=== PATIENT | female | born 2000 | race Caucasian/White ===

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

== ENCOUNTER 2019-04-03 23:49 | Outpatient (CLI) | payer OTHER ==
[2019-04-04 00:26] LABS: Amorphous Sediment,Urine Rare /hpf; Appearance,Urine Cloudy (Clear); Bilirubin,Urine Negative (Negative); Blood,Urine Negative (Negative); Calcium Oxalate Crystals,Urine Rare /hpf; Color,Urine Yellow; Glucose,Urine (UA) Negative (Negative); Ketones,Urine Negative (Negative); Leukocyte Esterase,Urine Trace (Negative); Mucus,Urine Rare /hpf; Nitrite,Urine Negative (Negative); Protein,Urine Trace (Negative); RBC,Urine 1 /hpf (0-5); Specific Gravity,Urine 1.015 (1.001-1.035); Squamous Epithelial Cell,Urine 8 /hpf (0-4); Urobilinogen,Urine <2.0 mg/dL (<2.0); WBC,Urine 7 /hpf (0-5)
[2019-04-04 01:07] VITALS: BP 112/67; PULSE 61; RESP 16; TEMP 97.4
--- NOTE | 2019-04-12 09:20 | P.MSEPDOC ---
Presenting Problems - Arrival Data Date of Arrival on Unit: 04/03/19 Time of Arrival on Unit: 23:49 Mode of Transport: Ambulatory - Complaint OB-Reason for Admission/Chief Complaint: Other Comment: Patient had lower back pain the day before adn brown mucousy discharge this afternoon after using the bathroom Medical History - Information : 2 Para: 0 Term: 0 : 0 Abortions: Spontaneous or Elective: 1 Number of Living Children: 0 - Gestational Age Gestational Age by DENNY (wks/days): 32 Weeks and 5 Days Review of Systems - Review of Systems Constitutional: No problems Breast: No problems ENT: No problems Cardiovascular: No problems Respiratory: No problems Gastrointestinal: No problems Genitourinary: No problems Musculoskeletal: No problems Neurological: No problems Skin: No problems Vital Signs - Temperature Temperature: 97.4 F Temperature Source: Temporal Artery Scan - Pulse Right Brachial Pulse Rate: 61 Pulse Assessment Method: Automatic Cuff - Respirations Respiratory Rate: 16 Oxygen Delivery Method: Room Air - Blood Pressure Right Arm Blood Pressure: 112/67 Blood Pressure Mean: 82 Blood Pressure Source: Automatic Cuff Medical Screen Scoring (Pre) - Cervical Exam Dilation: 1-3 cm = 1 Membranes: Intact - Uterine Contractions Frequency: N/A Duration: N/A Intensity: N/A - Maternal Vital Signs Maternal Temperature: N/A Maternal Blood Pressure: N/A Signs of Preeclampsia: N/A Maternal Respirations: N/A - Maternal Trauma Maternal Trauma: N/A - Assessment - Baby A Baseline FHR: 125 Heart Rate - NICHD Category: Category I (Normal) = 0 NST: Reactive Position: N/A Station: N/A - Total Score - Baby A Total Score - Baby A: 1 - Total Score - Baby B Total Score - Baby B: 1 - Total Score - Baby C Total Score - Baby C: 1 - Level of Risk - Baby A Level of Risk - Baby A: Low (0-5) - Level of Risk - Baby B Level of Risk - Baby B: Low (0-5) - Level of Risk - Baby C Level of Risk - Baby C: Low (0-5) Physician Notification (Pre) - Physician Notified Physician Notified Date: 04/04/19 Physician Notified Time: 00:40 Physician/Practitioner Notifed:: Dr. Viveros Spoke With: Dr. Viveros New Order Received: Yes (Dr. Viveros would like cervical exam performed.) - Notification Comment Comment: Cervical exam completed. Patient dilated to a 1/50/high. Dr. Viveros states patient can be discharged and is to follow up with Dr. Hurst on 04/06/19 Disposition - Disposition OB Disposition: Discharge to home Discharge Date: 04/04/19 Discharge Time: 01:00 I agree with the RN Medical Screening Exam: Yes Risk & Benefit of care provided described in d/c instruction: Yes Diagnosis: FALSE LABOR BEFORE 37 COMPLETED WEEKS OF GEST, THIRD TRI
== END 2019-04-04 01:08 | disposition home or self-care (01) ==
LOC: FBPOP 23:49
PROVIDERS: ATTEND Obstetrics & Gynecology Obstetrics
DX: O47.03 False labor before 37 completed weeks of gestation, third trimester (principal); Z3A.32 32 weeks gestation of pregnancy
CPT/HCPCS: 59025; 81001; G0463; 99213

== ENCOUNTER 2019-04-06 16:50 | Emergency (ER) | payer OTHER ==
[2019-04-06 17:23] VITALS: BP 107/68; PULSE 74; RESP 18; TEMP 98.5
[2019-04-06] MEDS ORDERED: ACETAMINOPHEN TAB 325 MG TAB PO STA (17:49)
--- NOTE | 2019-04-06 18:14 | XR ---
EXAMINATION TYPE: XR elbow complete RT DATE OF EXAM: 04/06/2019 COMPARISON: NONE HISTORY: Fall. Pain. TECHNIQUE: 3 views FINDINGS: I see no fracture nor dislocation. Elbow joint spaces are fairly normal. There is no sign o f joint effusion. IMPRESSION: Negative right elbow exam.
--- NOTE | 2019-04-06 18:34 | ED ---
Fall HPI - General Chief Complaint: Fall Stated Complaint: Fall, elbow pain Time Seen by Provider: 04/06/19 17:30 Source: patient Mode of arrival: ambulatory - History of Present Illness Initial Comments: Patient is a 18-year-old female presents emergency Department with right elbow pain. Patient reports walking on wet concrete when she slipped and injured her right elbow earlier today. Patient denies any head trauma. Patient denies loss of consciousness time incident. Patient reports pain with extension and is alleviated with rest. Patient reports the pain is a 7 and throbbing. Patient denies any numbness or tingling. Patient reports a mild abrasion on the posterior aspect of her right elbow. Patient denies taking medication to alleviate the pain. - Related Data Home Medications Medication Instructions Recorded Confirmed Vit,Calc78/Iron/Folic 1 tab PO DAILY 04/04/19 04/04/19 [Pretab 29 mg-1 mg Tablet] Allergies Allergy/AdvReac Type Severity Reaction Status Date / Time Penicillins Allergy Unknown Rash/Hives Verified 04/06/19 17:23 Review of Systems ROS Statement: Those systems with pertinent positive or pertinent negative responses have been documented in the HPI. ROS Other: All systems not noted in ROS Statement are negative. Past Medical History Past Medical History: No Reported History Additional Past Medical History / Comment(s): osteopenia. 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 Past Psychological History: No Psychological Hx Reported Smoking Status: Never smoker General Exam - General Exam Comments Initial Comments: General: Well-developed well-nourished distress HEENT: Normocephalic/atraumatic, PERLL, pharynx erythema, swallowing well, EAC no erythema, no exudates, TM clear, no cervical lymph nodes Neck: Supple, nontender, trachea midline Chest/Lungs: Normal respirations, no signs of respiratory distress clear to auscultation bilaterally no wheezes, rales, rhonchi Cardiac: Regular rate and rhythm, normal S1-S2, no murmurs rubs or gallops Abdomen/GI: Soft nontender, bowel sounds equal or quadrant x4, no guarding, no rebound no CVA tenderness Musculoskeletal: 1 cm x 1 cm abrasion on the posterior aspect of the right elbow, tenderness with palpation on the right elbow, pain with extension , full range of motion, no edema, strength equal bilaterally, +2 ulnar and radial pulses, bilaterally. Skin: Warmth, no rashes or lesions, no cyanosis or diaphoresis Neurologic: AAO x 3, CN 2-12 intact, Psychiatric: Mood and affect normal, judgment normal Limitations: no limitations Course Vital Signs 04/06/19 17:20 Temperature 98.5 F Pulse Rate 74 Respiratory 18 Rate Blood Pressure 107/68 O2 Sat by Pulse 97 Oximetry Medical Decision Making - Medical Decision Making Patient is a 89-year-old female presenting to emergency department with right elbow pain. X-ray of the right elbow is negative for acute fracture or dislocations. Based on history and physical examination I suspect the patient to have suffered a contusion to the right elbow. Dawit wrap was applied. Patient was placed in a sling. There is no signs of infection. Patient advised to keep compress and area of tenderness to minimize swelling. Patient advised to follow-up with orthopedics if symptoms do not resolve. Patient advised to return to emergency department if symptoms worsen. Case discussed with physician. Disposition Clinical Impression: Contusion of elbow, right Disposition: HOME SELF-CARE Condition: Stable Instructions (If sedation given, give patient instructions): Fall Prevention for Older Adults (ED) Additional Instructions: please follow-up withorthopedics. Apply cold compress to minimize swelling. Please return to emergency department if symptoms worsen. Is patient prescribed a controlled substance at d/c from ED?: No Referrals: None,Stated [Primary Care Provider] - 1-2 days Jacob Ny MD [STAFF PHYSICIAN] - 1-2 days Time of Disposition: 18:49
== END 2019-04-06 19:10 | disposition home or self-care (01) ==
LOC: EC 16:50
DX: O9A.213 Injury, poisoning and certain other consequences of external causes complicating pregnancy, third trimester (principal); S50.01XA Contusion of right elbow, initial encounter; Z88.0 Allergy status to penicillin; Z87.39 Personal history of other diseases of the musculoskeletal system and connective tissue; Z3A.33 33 weeks gestation of pregnancy; W01.0XXA Fall on same level from slipping, tripping and stumbling without subsequent striking against object, initial encounter; Y93.01 Activity, walking, marching and hiking; Y92.89 Other specified places as the place of occurrence of the external cause
CPT/HCPCS: 99283

== ENCOUNTER 2019-04-18 22:20 | Outpatient (CLI) | payer OTHER ==
[2019-04-18 23:42] LABS: Appearance,Urine Clear (Clear); Bilirubin,Urine Negative (Negative); Blood,Urine Negative (Negative); Color,Urine Light Yellow; Glucose,Urine (UA) Negative (Negative); Ketones,Urine Negative (Negative); Leukocyte Esterase,Urine Negative (Negative); Nitrite,Urine Negative (Negative); PH, Urine 6.5 (5.0-8.0); Protein,Urine Negative (Negative); Specific Gravity,Urine 1.007 (1.001-1.035); Urobilinogen,Urine <2.0 mg/dL (<2.0)
== END 2019-04-18 23:50 | disposition home or self-care (01) ==
LOC: FBPOP 22:20
PROVIDERS: ATTEND Obstetrics & Gynecology Obstetrics
DX: O26.893 Other specified pregnancy related conditions, third trimester (principal); R10.31 Right lower quadrant pain; Z87.442 Personal history of urinary calculi; Z3A.34 34 weeks gestation of pregnancy
CPT/HCPCS: 59025; 81003; G0463; 99213

== ENCOUNTER 2019-05-01 21:40 | Outpatient (CLI) | payer OTHER ==
[2019-05-01 22:20] VITALS: BP 119/73; PULSE 76; RESP 15; TEMP 97.6
--- NOTE | 2019-05-22 12:41 | P.MSEPDOC ---
Presenting Problems - Arrival Data Date of Arrival on Unit: 05/01/19 Time of Arrival on Unit: 21:40 Mode of Transport: Ambulatory - Complaint OB-Reason for Admission/Chief Complaint: Rule Out SROM Comment: No fluid noted at time of exam Medical History - Information : 1 Para: 0 Term: 0 : 0 Abortions: Spontaneous or Elective: 0 Number of Living Children: 0 - Gestational Age Gestational Age by DENNY (wks/days): 36 Weeks and 4 Days Review of Systems - Review of Systems Constitutional: No problems Breast: No problems ENT: No problems Cardiovascular: No problems Respiratory: No problems Gastrointestinal: No problems Genitourinary: No problems Musculoskeletal: No problems Neurological: No problems Skin: No problems Vital Signs - Temperature Temperature: 97.6 F Temperature Source: Temporal Artery Scan - Pulse Pulse Oximetery Pulse Rate: 76 Pulse Assessment Method: Pulse Oximetry - Respirations Respiratory Rate: 15 Oxygen Delivery Method: Room Air O2 Sat by Pulse Oximetry: 100 - Blood Pressure Right Arm Blood Pressure: 119/73 Blood Pressure Mean: 88 Blood Pressure Source: Automatic Cuff Medical Screen Scoring (Pre) - Cervical Exam Dilation: 1-3 cm = 1 Effacement: More than 50% = 2 Membranes: Intact - Uterine Contractions Frequency: N/A Duration: N/A Intensity: N/A - Maternal Vital Signs Maternal Temperature: N/A Maternal Blood Pressure: N/A Signs of Preeclampsia: N/A Maternal Respirations: N/A - Maternal Trauma Maternal Trauma: N/A - Assessment - Baby A Baseline FHR: 120 Heart Rate - NICHD Category: Category I (Normal) = 0 NST: Reactive Position: N/A Station: N/A - Total Score - Baby A Total Score - Baby A: 3 - Total Score - Baby B Total Score - Baby B: 3 - Total Score - Baby C Total Score - Baby C: 3 - Level of Risk - Baby A Level of Risk - Baby A: Low (0-5) - Level of Risk - Baby B Level of Risk - Baby B: Low (0-5) - Level of Risk - Baby C Level of Risk - Baby C: Low (0-5) Physician Notification (Pre) - Physician Notified Physician Notified Date: 05/01/19 Physician Notified Time: 22:07 Physician/Practitioner Notifed:: Dr. Mcqueen Spoke With: Dr. Mcqueen New Order Received: Yes (discharge) - Notification Comment Comment: Report given on maternal condition, negative amnisure, no contractions, reactive NST. Orders to discharge pt home Disposition - Disposition OB Disposition: Discharge to home Discharge Date: 05/01/19 Discharge Time: 22:10 I agree with the RN Medical Screening Exam: Yes Risk & Benefit of care provided described in d/c instruction: Yes Diagnosis: RELATED CONDITIONS, UNSPECIFIED, THIRD TRIMESTER
== END 2019-05-01 22:10 | disposition home or self-care (01) ==
LOC: FBPOP 21:40
PROVIDERS: ATTEND Obstetrics & Gynecology
DX: O26.93 Pregnancy related conditions, unspecified, third trimester (principal); Z3A.26 26 weeks gestation of pregnancy
CPT/HCPCS: 59025; G0463; 99213

== ENCOUNTER 2019-05-05 00:15 | Outpatient (CLI) | payer OTHER ==
[2019-05-05 01:34] VITALS: BP 118/67; PULSE 76; RESP 16; TEMP 98.7
--- NOTE | 2019-05-05 05:00 | P.MSEPDOC ---
Presenting Problems - Arrival Data Date of Arrival on Unit: 05/05/19 Time of Arrival on Unit: 00:15 Mode of Transport: Ambulatory - Complaint OB-Reason for Admission/Chief Complaint: Rule Out SROM Comment: Possible ROM around 2345 Medical History - Information : 1 Para: 0 Term: 0 : 0 Abortions: Spontaneous or Elective: 0 Number of Living Children: 0 - Gestational Age Gestational Age by DENNY (wks/days): 37 Weeks and 1 Days Review of Systems - Review of Systems Constitutional: No problems Breast: No problems ENT: No problems Cardiovascular: No problems Respiratory: No problems Gastrointestinal: No problems Genitourinary: No problems Musculoskeletal: No problems Neurological: No problems Skin: No problems Vital Signs - Temperature Temperature: 98.7 F Temperature Source: Oral - Pulse Pulse Oximetery Pulse Rate: 76 Pulse Assessment Method: Pulse Oximetry - Respirations Respiratory Rate: 16 Oxygen Delivery Method: Room Air O2 Sat by Pulse Oximetry: 99 - Blood Pressure Right Arm Blood Pressure: 118/67 Blood Pressure Mean: 84 Blood Pressure Source: Automatic Cuff Medical Screen Scoring (Pre) - Cervical Exam Dilation: 1-3 cm = 1 Effacement: More than 50% = 2 Membranes: Intact - Uterine Contractions Frequency: > or = 36 weeks =2 Duration: > 40 seconds = 2 Intensity: N/A - Maternal Vital Signs Maternal Temperature: N/A Maternal Blood Pressure: N/A Signs of Preeclampsia: N/A Maternal Respirations: N/A - Maternal Trauma Maternal Trauma: N/A - Assessment - Baby A Baseline FHR: 125 Heart Rate - NICHD Category: Category I (Normal) = 0 NST: Reactive Position: N/A Station: N/A - Total Score - Baby A Total Score - Baby A: 7 - Total Score - Baby B Total Score - Baby B: 7 - Total Score - Baby C Total Score - Baby C: 7 - Level of Risk - Baby A Level of Risk - Baby A: Medium (6-9) - Level of Risk - Baby B Level of Risk - Baby B: Medium (6-9) - Level of Risk - Baby C Level of Risk - Baby C: Medium (6-9) Physician Notification (Pre) - Physician Notified Physician Notified Date: 05/05/19 Physician Notified Time: 00:43 Physician/Practitioner Notifed:: Dr. Viveros Spoke With: Dr. Viveros New Order Received: Yes (discharge home and keep appointment tomorrow) - Notification Comment Comment: Dr. Viveros notified of maternal/ condition, negative amnisure, contractions 3-5 minutes apart but not painful, NST reactive. Orders to discharge home and keep schedule appointment for tomorrow Disposition - Disposition OB Disposition: Physician follow up in office, Discharge to home Discharge Date: 05/05/19 Discharge Time: 00:50 I agree with the RN Medical Screening Exam: Yes Risk & Benefit of care provided described in d/c instruction: Yes Diagnosis: FALSE LABOR AT OR AFTER 37 COMPLETED WEEKS OF GESTATION
== END 2019-05-05 00:50 | disposition home or self-care (01) ==
LOC: FBPOP 00:15
PROVIDERS: ATTEND Obstetrics & Gynecology
DX: O47.1 False labor at or after 37 completed weeks of gestation (principal); Z3A.37 37 weeks gestation of pregnancy
CPT/HCPCS: 59025; 84112; G0463; 99213

== ENCOUNTER 2019-05-18 05:51 | Inpatient (IN) | payer OTHER ==
[2019-05-18 06:22] VITALS: BMI 46.7
[2019-05-18] MEDS ORDERED: TERBUTALINE 1 MG/ML VIAL SQ PRN (06:37)
[2019-05-18] MEDS ORDERED: METHYLERGONOVINE 0.2 MG/ML 1 ML AMP IM PRN (06:37)
[2019-05-18] MEDS ORDERED: LIDOCAINE 0.5% (PF) 5 MG/ML (50 ML SDV) SQ PRN (06:37)
[2019-05-18] MEDS ORDERED: CARBOPROST TROMETHAMINE 250 MCG/ML 1 ML AMP IM PRN (06:37)
[2019-05-18] MEDS ORDERED: OXYTOCIN 10 UNIT/ML 1 ML VIAL IM PRN (06:37)
[2019-05-18] MEDS ORDERED: OXYTOCIN 30 UNITS/500 ML NS 30 UNIT in SALINE 1 500ML.BAG IV SCH (06:45)
[2019-05-18 06:49] LABS: Basophils % (A) 0 %; Eosinophils # (A) 0.2 k/uL (0-0.7); Eosinophils % (A) 2 %; HCT 35.2 % (34.0-46.0); HGB 11.2 gm/dL (11.4-16.0); Lymphocytes # (A) 2.5 k/uL (1.0-4.8); Lymphocytes % (A) 23 %; MCH 29.1 pg (25.0-35.0); MCHC 31.8 g/dL (31.0-37.0); MCV 91.6 fL (80.0-100.0); Mean Platelet Volume 8.9; Monocytes # (A) 0.8 k/uL (0-1.0); Monocytes % (A) 7 %; Neutrophils # (A) 7.1 k/uL (1.3-7.7); Neutrophils % (A) 65 %; Platelet Count 251 k/uL (150-450); RBC 3.85 m/uL (3.80-5.40); RDW 13.3 % (11.5-15.5)
[2019-05-18] MEDS: LACTATED RINGERS 1,000 ML IV SCH ×3 (06:56→17:00)
[2019-05-18] MEDS ORDERED: BUTORPHANOL 1 MG/ML 1 ML VIAL IV PRN (10:39)
[2019-05-18] MEDS ORDERED: ROPIVACAINE 100 MG, fentaNYL (PF) 200 MCG in SODIUM CHLORIDE 0.9% 76 ML EPIDURAL ONE (12:11)
--- NOTE | 2019-05-18 13:38 | P.HPOB ---
History of Present Illness H&P Date: 05/18/19 Chief Complaint: IUP at 39 0/sevenths weeks, elective induction of labor This is a pleasant 18-year-old 2 para 0010 at 39 0/7 weeks that presents to labor and delivery for elective induction of labor. Patient is an essentially uncomplicated despite the fact of being diagnosed with osteopenia prior to . Patient was seen by M all testing was re assuring. Patient has received routine care with myself. On bloodwork should a blood type of A+, rubella nonimmune, hep B surface antigen negative, HIV negative, RPR nonreactive, GBS negative. Today patient notes good movement states she is having an occasional contraction she denies vaginal bleeding or loss of fluid. Review of Systems Constitutional: Denies chills, Denies fatigue, Denies fever Past Medical History Past Medical History: No Reported History Additional Past Medical History / Comment(s): osteopenia. History of Any Multi-Drug Resistant Organisms: None Reported Past Surgical History: Ear Surgery Additional Past Surgical History / Comment(s): Uvula, Cleft palate. Tubes in ea rs. Past Psychological History: No Psychological Hx Reported Smoking Status: Former smoker Past Alcohol Use History: Occasional Past Drug Use History: None Reported Medications and Allergies Home Medications Medication Instructions Recorded Confirmed Type Vit,Calc78/Iron/Folic 1 tab PO DAILY 04/04/19 05/18/19 History [Pretab 29 mg-1 mg Tablet] Omeprazole [PriLOSEC] 40 mg PO DAILY 04/18/19 05/18/19 History Allergies Allergy/AdvReac Type Severity Reaction Status Date / Time Penicillins Allergy Unknown Rash/Hives Verified 05/18/19 06:23 Exam Osteopathic Statement: *. No significant issues noted on an osteopathic structural exam other than those noted in the History and Physical/Consult. 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 heart tones are noted to be category 1 and she is alen irregularly at this time as they are not graphing well. Results Result Diagrams: 05/18/19 06:00 Abnormal Lab Results - Last 24 Hours (Table) 05/18/19 Range/Units 06:00 Hgb 11.2 L (11.4-16.0) gm/dL Assessment and Plan (1) Term Current Visit: Yes Status: Acute Code(s): Z34.90 - ENCNTR FOR SUPRVSN OF N ORMAL , UNSP, UNSP TRIMESTER SNOMED Code(s): 19472906 Plan: Patient is admitted to labor and delivery for Pitocin induction of labor, anticipate spontaneous vaginal delivery later today. Patient is offered epidural/Stadol for pain control throughout labor and she will consider both.
[2019-05-18] MEDS ORDERED: LANOLIN CREAM 5 GM TUBE TOPICAL PRN (13:40)
[2019-05-18] MEDS ORDERED: HYDROcodone/APAP 5-325MG 1 EACH TAB PO PRN (13:40)
[2019-05-18] MEDS ORDERED: diphenhydrAMINE 50 MG CAP PO PRN (13:40)
[2019-05-18] MEDS ORDERED: ZOLPIDEM 5 MG TAB PO PRN (13:40)
[2019-05-18] MEDS ORDERED: SIMETHICONE 80 MG CHEWABLE PO PRN (13:40)
[2019-05-18] MEDS ORDERED: diphenhydrAMINE 50 MG/ML 1 ML VIAL IVP PRN ×2 (13:40)
[2019-05-18] MEDS ORDERED: MEASLES-MUMPS-RUBELLA VACC/PF 12,500 UNIT/0.5 ML VIAL SQ ONE (13:40)
[2019-05-18] MEDS ORDERED: diphenhydrAMINE 25 MG CAP PO PRN (13:40)
[2019-05-18] MEDS ORDERED: WITCH HAZEL 1 EACH MED..PAD TOPICAL PRN (13:40)
[2019-05-18] MEDS ORDERED: HYDROCORTISONE 2.5% RECTAL CREAM 30 GM TUBE RECTAL PRN (13:40)
[2019-05-18] MEDS ORDERED: BENZOCAINE/MENTHOL SPRAY 1 GM/SPRAY AEROSOL TOPICAL PRN (13:40)
--- NOTE | 2019-05-18 13:40 | P.PROBDLV ---
Vaginal Delivery Note - . Vaginal Delivery Note: This is a pleasant 18-year-old 2 para 0010 at 39-0/7 weeks that presented to labor and delivery for induction of labor early this morning. Patient was 470 m on admission. Patient underwent amniotomy clear fluid was obtained. Patient became uncomfortable requesting epidural placement by anesthesia. Epidural was placed without difficulty. Patient progressed through labor eventually becoming completely dilated and began pushing she had a normal spontaneous vaginal delivery of a viable female infant at 1320, weight of 8 lbs. 11 oz. with Apgars of 9 and 9 at one and 5 minutes respectively. After a two- minute delayed the umbilical cord was doubly clamped and cut and the placenta was delivered spontaneously intact with a three-vessel cord being noted.. Patient did sustain a left labial laceration which was repaired in usual fashion with 4-0 chromic. A very small first-degree vaginal laceration was noted and repaired with a [id number] suture of 4-0 chromic. Patient's uterus is noted to be firm and below the umbilicus, estimated blood loss approximately 300 mL. Next Patient and tolerated delivery well and are resting comfortably.
[2019-05-18] MEDS ORDERED: OXYTOCIN 20 UNITS/1000 ML NS 1,000 ML IV SCH (13:45)
[2019-05-18] MEDS: IBUPROFEN 600 MG TAB PO PRN ×2 (17:51→23:23)
[2019-05-18] MEDS: SENNOSIDES-DOCUSATE SODIUM 1 EACH TAB PO SCH (17:52)
[2019-05-19] MEDS: ACETAMINOPHEN TAB 325 MG TAB PO PRN ×2 (03:55→09:07)
[2019-05-19 07:20] LABS: Basophils % (A) 0 %; Eosinophils # (A) 0.1 k/uL (0-0.7); Eosinophils % (A) 1 %; HCT 33.8 % (34.0-46.0); HGB 10.8 gm/dL (11.4-16.0); Hypochromasia Slight; Lymphocytes # (A) 2.5 k/uL (1.0-4.8); Lymphocytes % (A) 18 %; MCH 29.6 pg (25.0-35.0); MCV 92.6 fL (80.0-100.0); Mean Platelet Volume 8.8; Monocytes # (A) 1.2 k/uL (0-1.0); Monocytes % (A) 9 %; Neutrophils # (A) 9.2 k/uL (1.3-7.7); Neutrophils % (A) 68 %; Platelet Count 220 k/uL (150-450); RBC 3.65 m/uL (3.80-5.40); RDW 13.4 % (11.5-15.5); WBC 13.5 k/uL (4.0-11.0)
[2019-05-19] MEDS ORDERED: PANTOPRAZOLE 40 MG TABLET PO SCH (07:30)
[2019-05-19] MEDS: IBUPROFEN 600 MG TAB PO PRN (07:51)
[2019-05-19] MEDS: SENNOSIDES-DOCUSATE SODIUM 1 EACH TAB PO SCH (07:52)
--- NOTE | 2019-05-19 08:08 | P.DS ---
Providers Date of admission: 05/18/19 05:51 Expected date of discharge: 05/19/19 Attending physician: Sindy Hurst Primary care physician: Stated None - Discharge Diagnosis(es) (1) Term Current Visit: Yes Status: Acute (2) Perineal laceration with delivery, first degree Current Visit: Yes Status: Acute (3) Obstetric labial laceration, delivered, current hospitalization Current Visit: Yes Status: Acute (4) Status post normal vaginal delivery Current Visit: Yes Status: Acute (5) Normal spontaneous vaginal delivery Current Visit: Yes Status: Acute Hospital Course: This is a 18-year-old 2 now para 1011 woman who is admitted at 39-0/7 weeks gestation for elective induction of labor with a favorable cervix. The patient was admitted and underwent a Pitocin induction of labor with artificial rupture of membranes. She did on the receive an epidural anesthetic. She went on to deliver a liveborn female infant weighing 8 lbs. 11 oz. with Apgars of 9 at 1 minute and 9 at 5 minutes. Please see the delivery summary for details. The patient's course was unremarkable. By the morning of day #1 she was ambulating and voiding without difficulty, her lochia was minimal and her vital signs were stable. She was tolerating a general diet. She was therefore discharged home with routine instructions for care and follow-up. Of note the patient is rubella nonimmune however declines MMR vaccination today. Procedures: Normal spontaneous vaginal delivery Repair of obstetrical lacerations Patient Condition at Discharge: Good Plan - Discharge Summary New Discharge Prescriptions: No Action Vit,Calc78/Iron/Folic [Pretab 29 mg-1 mg Tablet] 1 tab PO DAILY Omeprazole [PriLOSEC] 40 mg PO DAILY Discharge Medication List Vit,Calc78/Iron/Folic [Pretab 29 mg-1 mg Tablet] 1 tab PO DAILY 04/04/19 [History] Omeprazole [PriLOSEC] 40 mg PO DAILY 04/18/19 [History] Follow up Appointment(s)/Referral(s): Sindy Hurst DO [Doctor of Osteopathic Medicine] - 6 Weeks Activity/Diet/Wound Care/Special Instructions: Follow-up in the office in 6 weeks . Call with any concerning signs or symptoms including heavy vaginal bleeding, severe abdominal pain, fever greater than 101, swelling or redness of the lower extremities, foul vaginal discharge, or signs of depression. Nothing in the vagina for 6 weeks after delivery, specifically no intercourse. May use [id number] ibuprofen and/or Tylenol as needed for pain. May use [id number]-[id number] stool softener such as Senokot or Colace as needed. Discharge Disposition: HOME SELF-CARE
[2019-05-19] MEDS ORDERED: PRENATAL VIT-IRON-FOLIC ACID 1 EACH CAP PO SCH (09:00)
[2019-05-19 10:34] VITALS: BP 103/76; PULSE 77; RESP 16; TEMP 97.9
== END 2019-05-19 14:30 | disposition home or self-care (01) | DRG 807 ==
LOC: 4FBP 05:51
PROVIDERS: ADMIT Obstetrics & Gynecology Obstetrics; ATTEND Obstetrics & Gynecology Obstetrics
PROC: 10E0XZZ Delivery of Products of Conception, External Approach (ICD-10-PCS; principal; 2019-05-18)
PROC: 0HQ9XZZ Repair Perineum Skin, External Approach (ICD-10-PCS; 2019-05-18)
PROC: 3E033VJ Introduction of Other Hormone into Peripheral Vein, Percutaneous Approach (ICD-10-PCS; 2019-05-18)
PROC: 10907ZC Drainage of Amniotic Fluid, Therapeutic from Products of Conception, Via Natural or Artificial Opening (ICD-10-PCS; 2019-05-18)
PROC: 00HU33Z Insertion of Infusion Device into Spinal Canal, Percutaneous Approach (ICD-10-PCS; 2019-05-18)
PROC: 3E0R3BZ Introduction of Anesthetic Agent into Spinal Canal, Percutaneous Approach (ICD-10-PCS; 2019-05-18)
PROC: 3E0134Z Introduction of Serum, Toxoid and Vaccine into Subcutaneous Tissue, Percutaneous Approach (ICD-10-PCS; 2019-05-18)
DX: O70.0 First degree perineal laceration during delivery (principal); Z37.0 Single live birth; O26.891 Other specified pregnancy related conditions, first trimester; M85.80 Other specified disorders of bone density and structure, unspecified site; Z23 Encounter for immunization; Z3A.39 39 weeks gestation of pregnancy; Z79.899 Other long term (current) drug therapy; Z87.891 Personal history of nicotine dependence; Z87.730 Personal history of (corrected) cleft lip and palate; Z88.0 Allergy status to penicillin
CPT/HCPCS: 85025; 86850; 86900; 86901

== ENCOUNTER 2020-07-31 20:20 | Emergency (ER) | payer OTHER ==
[2020-07-31 20:26] VITALS: BP 87/57; PULSE 81; TEMP 98
--- NOTE | 2020-07-31 20:57 | ED ---
Female Urogenital HPI - General Chief complaint: Vaginal Bleeding Stated complaint: Vaginal bleeding Time Seen by Provider: 07/31/20 20:36 Source: patient Mode of arrival: ambulatory Limitations: no limitations - History of Present Illness Initial comments: Patient is a 19-year-old female presenting to the emergency Department with complaints of vaginal bleeding that started about an hour before she came in. Patient states she is currently 10 weeks, almost 11 weeks , . Her [employer] is in [place]. Patient states she was at the park today with her daughter when she came back she noticed blood that had soaked on her underwear. Patient states she is having some very mild lower back cramping no significant abdominal pain. She denies any nausea, vomiting, diarrhea. She denies any recent fever, chills. She states this has been uncomplicated thus far. She did have an ultrasound at approximately 6-7 weeks to confirm dates. She has no further complaints at this time. Upon arrival to the ER, her vitals are stable. - Related Data Home Medications Medication Instructions Recorded Confirmed Vit,Calc78/Iron/Folic 1 tab PO DAILY 04/04/19 05/18/19 [Pretab 29 mg-1 mg Tablet] Omeprazole [PriLOSEC] 40 mg PO DAILY 04/18/19 05/18/19 Allergies Allergy/AdvReac Type Severity Reaction Status Date / Time Penicillins Allergy Unknown Rash/Hives Verified 05/18/19 06:23 Review of Systems ROS Statement: Those systems with pertinent positive or pertinent negative responses have been documented in the HPI. ROS Other: All systems not noted in ROS Statement are negative. Past Medical History Past Medical History: No Reported History Additional Past Medical History / Comment(s): osteopenia. 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 Past Psychological History: No Psychological Hx Reported Smoking Status: Never smoker Past Alcohol Use History: Occasional Past Drug Use History: None Reported General Exam - General Exam Comments Initial Comments: GENERAL: Patient is well-developed and well-nourished. Patient is nontoxic and in no acute distress. HEAD: Atraumatic, normocephalic. EYES: Pupils equal round and reactive to light, extraocular movements intact, sclera anicteric, conjunctiva are normal. Eyelids were unremarkable. ENT: TMs normal, nares patent, oropharynx clear without exudates. Moist mucous membranes. NECK: Normal range of motion, supple without lymphadenopathy or JVD. LUNGS: Unlabored respirations. Breath sounds clear to auscultation bilaterally and equal. No wheezes rales or rhonchi. HEART: Regular rate and rhythm without murmurs, rubs or gallops. ABDOMEN: Soft, nontender, normoactive bowel sounds. No guarding, no rebound. No masses appreciated. : declined MUSCULOSKELETAL: Normal extremities with adequate strength and normal range of motion, no pitting or edema. No clubbing or cyanosis. NEUROLOGICAL: Patient is alert and oriented x 3. Motor and sensory are also intact. Cranial nerves II through XII grossly intact. Symmetrical smile. Normal speech, normal gait. PSYCH: Normal mood, normal affect. SKIN: Warm, Dry, normal turgor, no rashes or lesions noted. Limitations: no limitations Course Vital Signs 07/31/20 20:24 Temperature 98.0 F Pulse Rate 81 Respiratory 18 Rate Blood Pressure 87/57 O2 Sat by Pulse 98 Oximetry Medical Decision Making - Medical Decision Making Patient is a 19-year-old female here complaining of vaginal bleeding that started 1 hour prior to arrival. She is 10 weeks , . Her [employer] is in [place]. She's has no abdominal pain, no nausea or vomiting. Her vital signs are stable. Patient's labs show no acute process, hCG Ward is 12,000, urine has a moderate amount of blood, greater than 182 WBCs however very rare bacteria. Culture is pending. Ultrasound reveals no heart tones detected, intrauterine demise at approximately 9 weeks gestation. Patient declined vaginal exam. I did discuss these findings with the patient. Patient has been resting comfortably. Patient will follow-up with her [employer] and [place] tomorrow. She can take Tylenol or Motrin for her discomfort. Her blood type is A+. Return parameters were discussed with the patient and she v erbalized understanding. - Lab Data Result diagrams: 07/31/20 20:48 07/31/20 20:48 Lab Results 07/31/20 07/31/20 07/31/20 Range/Units 20:48 20:48 20:48 WBC 7.2 (4.0-11.0) k/uL RBC 4.07 (3.80-5.40) m/uL Hgb 12.5 (11.4-16.0) gm/dL Hct 37.9 (34.0-46.0) % MCV 93.2 (80.0-100.0) fL MCH 30.8 (25.0-35.0) pg MCHC 33.1 (31.0-37.0) g/dL RDW 12.5 (11.5-15.5) % Plt Count 219 (150-450) k/uL Neutrophils % 60 % Lymphocytes % 28 % Monocytes % 6 % Eosinophils % 3 % Basophils % 1 % Neutrophils # 4.3 (1.3-7.7) k/uL Lymphocytes # 2.0 (1.0-4.8) k/uL Monocytes # 0.4 (0-1.0) k/uL Eosinophils # 0.2 (0-0.7) k/uL Basophils # 0.0 (0-0.2) k/uL Sodium 135 L (137-145) mmol/L Potassium 3.5 (3.5-5.1) mmol/L Chloride 105 (98-107) mmol/L Carbon Dioxide 24 (22-30) mmol/L Anion Gap 6 mmol/L BUN 7 (7-17) mg/dL Creatinine 0.66 (0.52-1.04) mg/dL Est GFR (CKD-EPI)AfAm >90 (>60 ml/min/1.73 sqM) Est GFR (CKD-EPI)NonAf >90 (>60 ml/min/1.73 sqM) Glucose 84 (74-99) mg/dL Calcium 9.2 (8.4-10.2) mg/dL Total Bilirubin 0.3 (0.2-1.3) mg/dL AST 17 (14-36) U/L ALT 8 (4-34) U/L Alkaline Phosphatase 51 (38-126) U/L Total Protein 7.0 (6.3-8.2) g/dL Albumin 3.9 (3.5-5.0) g/dL HCG, Quant 32385.3 mIU/mL Urine Color Yellow Urine Appearance Cloudy H (Clear) Urine pH 6.0 (5.0-8.0) Ur Specific [place] 1.024 (1.001-1.035) Urine Protein 1+ H (Negative) Urine Glucose (UA) Negative (Negative) Urine Ketones Negative (Negative) Urine Blood Moderate H (Negative) Urine Nitrite Negative (Negative) Urine Bilirubin Negative (Negative) Urine Urobilinogen <2.0 (<2.0) mg/dL Ur Leukocyte Esterase Large H (Negative) Urine RBC 8 H (0-5) /hpf Urine WBC >182 H (0-5) /hpf Ur Squamous Epith Cells 34 H (0-4) /hpf Amorphous Sediment Occasional H (None) /hpf Urine Bacteria Rare H (None) /hpf Hyaline Casts 6 H (0-2) /lpf Urine Mucus Few H (None) /hpf Disposition Clinical Impression: Vaginal bleeding, Incomplete , demise Disposition: HOME SELF-CARE Condition: Stable Instructions (If sedation given, give patient instructions): Threatened Misca rriage (ED) Additional Instructions: Please return to the Emergency Department if symptoms worsen or any other concerns. 8 take Tylenol or Motrin for discomfort. Please follow up with [employer] tomorrow as discussed. Is patient prescribed a controlled substance at d/c from ED?: No Referrals: None,Stated [Primary Care Provider] - 1-2 days
[2020-07-31 20:59] LABS: Basophils % (A) 1 %; Eosinophils # (A) 0.2 k/uL (0-0.7); Eosinophils % (A) 3 %; HCT 37.9 % (34.0-46.0); HGB 12.5 gm/dL (11.4-16.0); Lymphocytes % (A) 28 %; MCH 30.8 pg (25.0-35.0); MCHC 33.1 g/dL (31.0-37.0); MCV 93.2 fL (80.0-100.0); Mean Platelet Volume 7.6; Monocytes # (A) 0.4 k/uL (0-1.0); Monocytes % (A) 6 %; Neutrophils # (A) 4.3 k/uL (1.3-7.7); Neutrophils % (A) 60 %; Platelet Count 219 k/uL (150-450); RBC 4.07 m/uL (3.80-5.40); RDW 12.5 % (11.5-15.5); WBC 7.2 k/uL (4.0-11.0)
[2020-07-31 21:11] LABS: ALT 8 U/L (4-34); AST 17 U/L (14-36); African American GFR (CKD) >90 (>60 ml/min/1.73 sqM); Albumin 3.9 g/dL (3.5-5.0); Alkaline Phosphatase 51 U/L (38-126); Anion Gap 6 mmol/L; Blood Urea Nitrogen 7 mg/dL (7-17); Calcium 9.2 mg/dL (8.4-10.2); Carbon Dioxide 24 mmol/L (22-30); Chloride 105 mmol/L (98-107); Glucose 84 mg/dL (74-99); Non-African American GFR(CKD) >90 (>60 ml/min/1.73 sqM); Potassium 3.5 mmol/L (3.5-5.1); Sodium 135 mmol/L (137-145); Total Bilirubin 0.3 mg/dL (0.2-1.3)
[2020-07-31 21:22] LABS: Amorphous Sediment,Urine Occasional /hpf; Appearance,Urine Cloudy (Clear); Bacteria,Urine Rare /hpf; Bilirubin,Urine Negative (Negative); Blood,Urine Moderate (Negative); Color,Urine Yellow; Glucose,Urine (UA) Negative (Negative); Hyaline Casts,Urine 6 /lpf (0-2); Ketones,Urine Negative (Negative); Leukocyte Esterase,Urine Large (Negative); Mucus,Urine Few /hpf; Nitrite,Urine Negative (Negative); Protein,Urine 1+ (Negative); RBC,Urine 8 /hpf (0-5); Specific Gravity,Urine 1.024 (1.001-1.035); Squamous Epithelial Cell,Urine 34 /hpf (0-4); Urobilinogen,Urine <2.0 mg/dL (<2.0); WBC,Urine >182 /hpf (0-5)
[2020-07-31 21:27] LABS: HCG,Quantitative Serum 12668.3 mIU/mL
--- NOTE | 2020-07-31 21:58 | US ---
EXAMINATION TYPE: Transabdominal DATE OF EXAM: 07/31/2020 9:32 PM COMPARISON: NONE CLINICAL HISTORY: bleeding, 10 weeks. Bleeding x 1 day. . Hx miscarriage. EXAM PERFORMED: Transvaginal (TV), Limited TA imaging due to bowel and empty bladder. EXAM MEASUREMENTS: GESTATIONAL AGE / DATING Physician Established: (10 weeks/3 days) EDC: 02/23/2021 Dates by LMP: Unknown Dates by First Scan: This is first scan. Dates by Current Scan for: (9 weeks/0 days) EDC: 03/05/2021. Unable to detect heart tones. MATERNAL ANATOMY Uterus: 9.3 x 8.0 x 6.6 cm. Retroverted. Hypoechoic area in cervix: 1.7 x 0.7 x 0.3 cm. Right Ovary: 2.5 x 2.2 x 1.2 cm. Left Ovary: 3.2 x 2.0 x 1.5 cm. Post CDS / Adnexa: Minimal fluid seen in CDS. Prominent blood vessels right adnexa measuring 0.61 cm. Presence of free fluid: In CDS. Presence of corpus luteal cyst: No Presence of subchorionic bleed: Hypoechoic, heterogeneous area seen adjacent to the gestational sac: 2.4 x 3.9 x 2.1 cm. A second hypoechoic-complex area seen adjacent to the gestational sac: 2.0 x 0.6 x 0.7 cm. GESTATION / SURVEY CRL: 2.32 cm. (9 weeks/0 days) Yolk Sac (normal less than 6mm): Not visualized. Heart Rate: No heart tones detected at this time. IUP: CRL seen, no heart tones detected at this time by ultrasound. Nuchal Translucency 10-14wks (normal less than 3mm): 0.83 mm. Date of LMP: Unknown Beta HcG (if available): 12,668.3 IMPRESSION: There is intrauterine uterine demise at approximately 9 weeks gestation.
[2020-07-31 22:41] VITALS: RESP 17
== END 2020-07-31 22:40 | disposition home or self-care (01) ==
LOC: EC 20:20
DX: O03.4 Incomplete spontaneous abortion without complication (principal); O36.4XX0 Maternal care for intrauterine death, not applicable or unspecified; Z79.899 Other long term (current) drug therapy; Z88.0 Allergy status to penicillin; Z3A.10 10 weeks gestation of pregnancy
CPT/HCPCS: 36415; 76801; 76813; 76817; 80053; 81001; 84702; 85025; 87086; 99284

== ENCOUNTER 2020-10-19 14:48 | Emergency (ER) | payer OTHER ==
[2020-10-19 15:13] VITALS: RESP 18; TEMP 99
--- NOTE | 2020-10-19 15:47 | ED ---
Female Urogenital HPI - General Chief complaint: Vaginal Bleeding Stated complaint: Vaginal Bleeding,6 wks preg? Time Seen by Provider: 10/19/20 15:05 Source: patient Mode of arrival: ambulatory Limitations: no limitations - History of Present Illness Initial comments: 19-year-old female is who presents to the emergency department with bleeding. Last menstrual cycle was September 03. States she is approximally 6 weeks . She has not been evaluated for this but states that she had a positive test at home. She is going to be following with Dr. Hurst and has an appointment for november. Yesterday the patient began having bilateral lower flank pain with hematuria. Reports to frequent urinary tract infections. States she does not believe that she is having any vaginal bleeding however does admit to vaginal discharge and concern for sexually transmitted infections. Denies melanotic stools or hematochezia. No fevers or chills. Denies any nausea or vomiting. No other allevating, precipitating or modifying factors Last Menstrual Period: 09/09/20 - Related Data Previous Rx's Medication Instructions Recorded Cephalexin [Keflex] 500 mg PO BID 1 Days #14 cap 10/19/20 Allergies Allergy/AdvReac Type Severity Reaction Status Date / Time Penicillins Allergy Unknown Rash/Hives Verified 10/19/20 15:57 Review of Systems ROS Statement: Those systems with pertinent positive or pertinent negative responses have been documented in the HPI. ROS Other: All systems not noted in ROS Statement are negative. Past Medical History Past Medical History: No Reported History Additional Past Medical History / Comment(s): osteopenia. History of Any Multi-Drug Resistant Organisms: None Reported Past Surgical History: Ear Surgery Additional Past Surgical History / Comment(s): Uvula, Cleft palate. Tubes in e ars. D&C 2019 Past Psychological History: No Psychological Hx Reported Smoking Status: Never smoker Past Alcohol Use History: Occasional Past Drug Use History: None Reported General Exam Limitations: no limitations Course Vital Signs 10/19/20 10/19/20 15:07 17:02 Temperature 99 F Pulse Rate 80 68 Respiratory 18 18 Rate Blood Pressure 103/63 118/67 O2 Sat by Pulse 99 97 Oximetry Medical Decision Making - Medical Decision Making Upon arrival patient was placed into room 22. A thorough history and physical exam was performed. Laboratory studies were conducted and the patient provides a urine sample. An ultrasound was performed. Laboratory studies are reviewed demonstrate a beta hCG of 360. Urinalysis demonstrates 6 white blood cells with rare bacteria. Obstetric ultrasound demonstrates no definite IUP at this time. Intrauterine gestation to early to visualize versus spontaneous , ectopic . The patient will be placed on antibiotics because of her reported suspected hematuria. Patient given a dose of Keflex in the emergency room. I did perform a pelvic exam does not demonstrate any vaginal bleeding at this time. Patient's blood type is A+. I spoke with Dr. Barakat in regards the patient's care. She will come in on Thursday for repeat blood draw and these laboratory studies will be sent to Dr. Hurst. Patient is to call on Thursday to make an appointment. She needs to have a repeat ultrasound performed within 1-2 weeks. She has any new or worsening symptoms return to the emergency room. She is informed of the risks of not having prompt reevaluation in regards to her symptoms to include ruptured ectopic for which she understood. Given written and verbal discharge instructions and discharged home in stable condition - Lab Data Result diagrams: 10/19/20 15:54 10/19/20 15:54 Lab Results 10/19/20 10/19/20 10/19/20 Range/Units 15:54 15:54 15:54 WBC 6.6 (4.0-11.0) k/uL RBC 4.11 (3.80-5.40) m/uL Hgb 12.4 (11.4-16.0) gm/dL Hct 36.3 (34.0-46.0) % MCV 88.5 (80.0-100.0) fL MCH 30.2 (25.0-35.0) pg MCHC 34.1 (31.0-37.0) g/dL RDW 12.2 (11.5-15.5) % Plt Count 188 (150-450) k/uL MPV 7.6 Neutrophils % 55 % Lymphocytes % 31 % Monocytes % 8 % Eosinophils % 3 % Basophils % 1 % Neutrophils # 3.6 (1.3-7.7) k/uL Lymphocytes # 2.0 (1.0-4.8) k/uL Monocytes # 0.5 (0-1.0) k/uL Eosinophils # 0.2 (0-0.7) k/uL Basophils # 0.0 (0-0.2) k/uL PT 10.5 (9.0-12.0) sec INR 1.0 (<1.2) APTT 26.9 (22.0-30.0) sec Sodium (137-145) mmol/L Potassium (3.5-5.1) mmol/L Chloride (98-107) mmol/L Carbon Dioxide (22-30) mmol/L Anion Gap mmol/L BUN (7-17) mg/dL Creatinine (0.52-1.04) mg/dL Est GFR (CKD-EPI)AfAm (>60 ml/min/1.73 sqM) Est GFR (CKD-EPI)NonAf (>60 ml/min/1.73 sqM) Glucose (74-99) mg/dL Calcium (8.4-10.2) mg/dL Total Bilirubin (0.2-1.3) mg/dL AST (14-36) U/L ALT (4-34) U/L Alkaline Phosphatase (38-126) U/L Total Protein (6.3-8.2) g/dL Albumin (3.5-5.0) g/dL HCG, Quant mIU/mL Urine Color Yellow Urine Appearance Clear (Clear) Urine pH 6.0 (5.0-8.0) Ur Specific [place] 1.033 (1.001-1.035) Urine Protein 2+ H (Negative) Urine Glucose (UA) Negative (Negative) Urine Ketones Negative (Negative) Urine Blood Negative (Negative) Urine Nitrite Negative (Negative) Urine Bilirubin Negative (Negative) Urine Urobilinogen <2.0 (<2.0) mg/dL Ur Leukocyte Esterase Trace H (Negative) Urine RBC 3 (0-5) /hpf Urine WBC 6 H (0-5) /hpf Ur Squamous Epith Cells 4 (0-4) /hpf Urine Bacteria Rare H (None) /hpf Urine Mucus Occasional H (None) /hpf Trichomonas Ag (Rapid) (Negative) 10/19/20 10/19/20 Range/Units 15:54 17:02 WBC (4.0-11.0) k/uL RBC (3.80-5.40) m/uL Hgb (11.4-16.0) gm/dL Hct (34.0-46.0) % MCV (80.0-100.0) fL MCH (25.0-35.0) pg MCHC (31.0-37.0) g/dL RDW (11.5-15.5) % Plt Count (150-450) k/uL MPV Neutrophils % % Lymphocytes % % Monocytes % % Eosinophils % % Basophils % % Neutrophils # (1.3-7.7) k/uL Lymphocytes # (1.0-4.8) k/uL Monocytes # (0-1.0) k/uL Eosinophils # (0-0.7) k/uL Basophils # (0-0.2) k/uL PT (9.0-12.0) sec INR (<1.2) APTT (22.0-30.0) sec Sodium 136 L (137-145) mmol/L Potassium 4.0 (3.5-5.1) mmol/L Chloride 107 (98-107) mmol/L Carbon Dioxide 23 (22-30) mmol/L Anion Gap 6 mmol/L BUN 12 (7-17) mg/dL Creatinine 0.72 (0.52-1.04) mg/dL Est GFR (CKD-EPI)AfAm >90 (>60 ml/min/1.73 sqM) Est GFR (CKD-EPI)NonAf >90 (>60 ml/min/1.73 sqM) Glucose 95 (74-99) mg/dL Calcium 9.2 (8.4-10.2) mg/dL Total Bilirubin 0.3 (0.2-1.3) mg/dL AST 19 (14-36) U/L ALT 9 (4-34) U/L Alkaline Phosphatase 55 (38-126) U/L Total Protein 7.0 (6.3-8.2) g/dL Albumin 4.0 (3.5-5.0) g/dL HCG, Quant 360.0 mIU/mL Urine Color Urine Appearance (Clear) Urine pH (5.0-8.0) Ur Specific [place] (1.001-1.035) Urine Protein (Negative) Urine Glucose (UA) (Negative) Urine Ketones (Negative) Urine Blood (Negative) Urine Nitrite (Negative) Urine Bilirubin (Negative) Urine Urobilinogen (<2.0) mg/dL Ur Leukocyte Esterase (Negative) Urine RBC (0-5) /hpf Urine WBC (0-5) /hpf Ur Squamous Epith Cells (0-4) /hpf Urine Bacteria (None) /hpf Urine Mucus (None) /hpf Trichomonas Ag (Rapid) Negative (Negative) Disposition Clinical Impression: Threatened miscarriage, Urinary tract infection Disposition: HOME SELF-CARE Condition: Stable Instructions (If sedation given, give patient instructions): Threatened Miscarriage (ED), Urinary Tract Infection in Women (ED) Additional Instructions: Come into the hospital on Thursday for repeat lab draw. Those results will be sent to Dr. Hurst. Call their office on Thursday as you'll need a repeat ultrasound within the next 1-2 weeks. Return to the emergency room for any new or worsening symptoms Prescriptions: Cephalexin [Keflex] 500 mg PO BID 1 Days #14 cap Is patient prescribed a controlled substance at d/c from ED?: No Referrals: None,Stated [Primary Care Provider] - 1-2 days Sindy Hurst DO [Doctor of Osteopathic Medicine] - 1-2 days Time of Disposition: 17:39
[2020-10-19 16:22] LABS: Basophils % (A) 1 %; Eosinophils # (A) 0.2 k/uL (0-0.7); Eosinophils % (A) 3 %; HCT 36.3 % (34.0-46.0); HGB 12.4 gm/dL (11.4-16.0); Lymphocytes % (A) 31 %; MCH 30.2 pg (25.0-35.0); MCHC 34.1 g/dL (31.0-37.0); MCV 88.5 fL (80.0-100.0); Mean Platelet Volume 7.6; Monocytes # (A) 0.5 k/uL (0-1.0); Monocytes % (A) 8 %; Neutrophils # (A) 3.6 k/uL (1.3-7.7); Neutrophils % (A) 55 %; Platelet Count 188 k/uL (150-450); RBC 4.11 m/uL (3.80-5.40); RDW 12.2 % (11.5-15.5); WBC 6.6 k/uL (4.0-11.0)
--- NOTE | 2020-10-19 16:27 | US ---
EXAMINATION TYPE: Transabdominal DATE OF EXAM: 10/19/2020 4:16 PM COMPARISON: NONE CLINICAL HISTORY: pain, bleeding. Positive beta hCG test. EXAM PERFORMED: Transvaginal (TV) and Transabdominal (TA) EXAM MEASUREMENTS: GESTATIONAL AGE / DATING Physician Established: Not yet established Dates by LMP: (5 weeks/5 days) EDC: 06/16/2021 Dates by First Scan: No previous this is first scan Dates by Current Scan for: No IUP visualized on this exam MATERNAL ANATOMY Uterus: 8.2 x 4.9 x 6.2 cm Right Ovary: 3.1 x 2.5 x 1.8 cm Left Ovary: 2.8 x 1.3 x 2.2 cm Post CDS / Adnexa: wnl Presence of free fluid: No Presence of corpus luteal cyst: Yes right ovary measuring 1.4 x 1.2 x 1.0 cm Presence of subchorionic bleed: Yes, measuring 2.4 x 0.4 x 1.6 cm GESTATION / SURVEY IUP: No IUP seen at this time Date of LMP: 09/09/2020 Beta HcG (if available): Not available at this time Heterogeneous anteverted uterus. Thickened endometrium with intraluminal blood product or nonsimple f luid. 3 mm round anechoic lesion without surrounding decidual reaction. No definitive gestational sac , yolk sac, or pole. No free fluid. Both ovaries seen with heterogeneous peripheral hypervascular 1.4 cm area right ovary suspicious for corpus luteal cyst. IMPRESSION: Findings likely reflect too early to visualize intrauterine gestation versus spontaneous , ectopic not entirely excluded. Serial beta hCG and ultrasound follow-up advised.
[2020-10-19 16:38] LABS: ALT 9 U/L (4-34); AST 19 U/L (14-36); African American GFR (CKD) >90 (>60 ml/min/1.73 sqM); Alkaline Phosphatase 55 U/L (38-126); Anion Gap 6 mmol/L; Blood Urea Nitrogen 12 mg/dL (7-17); Calcium 9.2 mg/dL (8.4-10.2); Carbon Dioxide 23 mmol/L (22-30); Chloride 107 mmol/L (98-107); Glucose 95 mg/dL (74-99); Non-African American GFR(CKD) >90 (>60 ml/min/1.73 sqM); Sodium 136 mmol/L (137-145); Total Bilirubin 0.3 mg/dL (0.2-1.3)
[2020-10-19 16:42] LABS: Appearance,Urine Clear (Clear); Bacteria,Urine Rare /hpf; Bilirubin,Urine Negative (Negative); Blood,Urine Negative (Negative); Color,Urine Yellow; Glucose,Urine (UA) Negative (Negative); Ketones,Urine Negative (Negative); Leukocyte Esterase,Urine Trace (Negative); Mucus,Urine Occasional /hpf; Nitrite,Urine Negative (Negative); Protein,Urine 2+ (Negative); RBC,Urine 3 /hpf (0-5); Specific Gravity,Urine 1.033 (1.001-1.035); Squamous Epithelial Cell,Urine 4 /hpf (0-4); Urobilinogen,Urine <2.0 mg/dL (<2.0); WBC,Urine 6 /hpf (0-5)
[2020-10-19 16:47] LABS: Partial Thromboplastin Time 26.9 sec (22.0-30.0); Prothrombin Time 10.5 sec (9.0-12.0)
[2020-10-19 17:03] VITALS: BP 118/67; PULSE 68
[2020-10-19] MEDS ORDERED: CEPHALEXIN 500 MG CAP PO STA (17:36)
== END 2020-10-19 17:50 | disposition home or self-care (01) ==
LOC: EC 14:48
DX: O20.0 Threatened abortion (principal); N39.0 Urinary tract infection, site not specified; Z88.0 Allergy status to penicillin; Z3A.01 Less than 8 weeks gestation of pregnancy
CPT/HCPCS: 36415; 76801; 76817; 80053; 81001; 84702; 85025; 85610; 85730; 87070; 87491; 87591; 87808; 99284

== ENCOUNTER → 2020-10-22 | Outpatient (CLI) | payer OTHER | END | disposition home or self-care (01) | LOC: LABWHC1 14:16 | PROVIDERS: ATTEND Emergency Medicine | DX: O20.0 Threatened abortion (principal) | CPT/HCPCS: 36415; 84702 ==

== ENCOUNTER 2024-01-05 20:42 | Emergency (ER) | payer OTHER ==
--- NOTE | 2024-01-05 21:39 | ED ---
General Adult HPI - General Chief complaint: Upper Respiratory Infection Stated complaint: Cough Time Seen by Provider: 01/05/24 20:58 Source: patient Mode of arrival: ambulatory Limitations: no limitations - History of Present Illness Initial comments: 23-year-old female who reports she is currently 8 weeks presenting to the ED with a chief complaint of cough. Patient reports she has had an intermittent cough for the past 4 weeks with associated subjective fever. Patient notes that due to the cough she is having pain of her abdomen especially worse with coughing. Otherwise denies vaginal bleeding. No chest pain or shortness of breath. No other complaints at this time. - Related Data Previous Rx's Medication Instructions Recorded cephALEXin [Keflex] 500 mg PO BID 1 Days #14 cap 10/19/20 Cephalexin [Keflex] 500 mg PO TID 10 Days #30 cap 01/06/24 Allergies Allergy/AdvReac Type Severity Reaction Status Date / Time Penicillins Allergy Unknown Rash/Hives Verified 10/19/20 15:57 Review of Systems ROS Statement: Those systems with pertinent positive or pertinent negative responses have been documented in the HPI. ROS Other: All systems not noted in ROS Statement are negative. Past Medical History Past Medical History: No Reported History Additional Past Medical History / Comment(s): osteopenia. 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 D&C 2020 Past Psychological History: No Psychological Hx Reported Smoking Status: Never smoker, Vaper Past Alcohol Use History: Occasional Past Drug Use History: None Reported General Exam Limitations: no limitations General appearance: alert, in no apparent distress Neck exam: Present: normal inspection Respiratory exam: Present: normal lung sounds bilaterally Cardiovascular Exam: Present: regular rate GI/Abdominal exam: Present: soft, normal bowel sounds. Absent: distended, tenderness, guarding, rebound, rigid Neurological exam: Present: alert, oriented X3 Skin exam: Present: warm, dry Course Vital Signs 01/05/24 01/06/24 20:48 00:31 Temperature 98 F 97.8 F Pulse Rate 87 75 Respiratory 16 20 Rate Blood Pressure 93/65 94/61 O2 Sat by Pulse 97 100 Oximetry Medical Decision Making - Medical Decision Making Was pt. sent in by a medical professional or institution (, PA, COLLIERY CLERK, urgent care, hospital, or intermediate...) When possible be specific @ -No Did you speak to anyone other than the patient for history (EMS, parent, family, police, friend...)? What history was obtained from this source @ -No Did you review nursing and triage notes (agree or disagree)? Why? @ -I reviewed and agree with nursing and triage notes Were old charts reviewed (outside hosp., previous admission, EMS record, old EKG, old radiological studies, urgent care reports/EKG's, intermediate records)? Report findings @ -No old charts were reviewed Differential Diagnosis (chest pain, altered mental status, abdominal pain women, abdominal pain men, vaginal bleeding, weakness, fever, dyspnea, syncope, headache, dizziness, GI bleed, back pain, seizure, CVA, palpatations, mental health, musculoskeletal)? @ -Differential Dyspnea: Coronary syndrome, arrhythmia, tamponade, asthma, COPD, pulmonary embolism, pneu monia, pneumothorax, pulmonary effusion, anaphylaxis, diabetic ketoacidosis, flailed chest, pulmonary contusion, diaphragmatic rupture, anemia, neuromuscular, this is not meant to be an all-inclusive list. EKG interpreted by me (3pts min.). @ -None X-rays interpreted by me (1pt min.). @ -None done CT interpreted by me (1pt min.). @ -None done U/S interpreted by me (1pt. min.). @ -Ultrasound interpreted me showing single live IUP corresponding to 6 weeks and 2 days. Small perigestational hematoma as well. What testing was considered but not performed or refused? (CT, X-rays, U/S, labs)? Why? @ -Chest x-ray was to be performed however upon auscultation of lungs, they are clear, at this time felt risks outweigh benefits at this time. Discussed with patient who is in agreement and would not like to have a chest x-ray performed. What meds were considered but not given or refused? Why? @ -None Did you discuss the management of the patient with other professionals (professionals i.e. , PA, COLLIERY CLERK, lab, RT, psych nurse, social media editor, signwriter, teacher, canine enforcement officer, counter caser)? Give summary @ -No Was smoking cessation discussed for >3mins.? @ -No Was critical care preformed (if so, how long)? @ -No Were there social determinants of health that impacted care today? How? (Homelessness, low income, unemployed, alcoholism, drug addiction, transportation, low edu. Level, literacy, decrease access to med. care, long term, rehab)? @ -No Was there de-escalation of care discussed even if they declined (Discuss DNR or withdrawal of care, Hospice)? DNR status @ -No What co-morbidities impacted this encounter? (DM, HTN, Smoking, COPD, CAD, Cancer, CVA, ARF, Chemo, Hep., AIDS, mental health diagnosis, sleep apnea, mor bid obesity)? @ - Was patient admitted / discharged? Hospital course, mention meds given and route, prescriptions, significant lab abnormalities, going to OR and other pertinent info. @ -Discharge 23-year-old female currently [address] Hurst of [employer] [employer] [facility] presenting to the ED with complaints of intermittent cough for the past 4 weeks and also notes over the past 3 days has had pain of her abdomen especially with coughing. No vaginal bleeding. Laboratory studies reviewed. Does have an elevated white blood cell count of 17 and elevated platelets at 510. Elevated neutrophils at 109. Chemistry panel unremarkable. UA does show evidence of infection with leukocyte Estrace, and rare bacteria. Serology panel unremarkable. Patient discharged home in stable condition with prescription for Keflex for asymptomatic bacteriuria. Discussed return precautions with patient who verbalized agreement. Advise close follow-up with her OB regarding ultrasound findings. Undiagnosed new problem with uncertain prognosis? @ -No Drug Therapy requiring intensive monitoring for toxicity (Heparin, Nitro, Insulin, Cardizem)? @ -No Were any procedures done? @ -No Diagnosis/symptom? @ - with live IUP, bronchitis, asymptomatic bacteriuria Acute, or Chronic, or Acute on Chronic? @ -Acute Uncomplicated (without systemic symptoms) or Complicated (systemic symptoms)? @ -Complicated Side effects of treatment? @ -No Exacerbation, Progression, or Severe Exacerbation? @ -No Poses a threat to life or bodily function? How? (Chest pain, USA, MS, pneumonia, PE, COPD, DKA, ARF, appy, cholecystitis, CVA, Diverticulitis, Homicidal, Suicidal, threat to staff... and all critical care pts) @ -No - Lab Data Result diagrams: 01/05/24 21:57 01/05/24 21:57 Lab Results 01/05/24 01/05/24 01/05/24 Range/Units 21:12 21:57 21:57 WBC 17.0 H (3.8-10.6) k/uL RBC 4.25 (3.80-5.40) m/uL Hgb 12.7 (11.4-16.0) gm/dL Hct 40.0 (34.0-46.0) % MCV 94.1 (80.0-100.0) fL MCH 29.8 (25.0-35.0) pg MCHC 31.7 (31.0-37.0) g/dL RDW 12.6 (11.5-15.5) % Plt Count 510 H (150-450) k/uL MPV 7.2 Neutrophils % 64 % Lymphocytes % 25 % Monocytes % 7 % Eosinophils % 1 % Basophils % 1 % Neutrophils # 10.9 H (1.3-7.7) k/uL Lymphocytes # 4.3 (1.0-4.8) k/uL Monocytes # 1.2 H (0-1.0) k/uL Eosinophils # 0.2 (0-0.7) k/uL Basophils # 0.1 (0-0.2) k/uL Sodium 139 (137-145) mmol/L Potassium 3.9 (3.5-5.1) mmol/L Chloride 105 (98-107) mmol/L Carbon Dioxide 25 (22-30) mmol/L Anion Gap 9 mmol/L BUN 13 (7-17) mg/dL Creatinine 0.70 (0.52-1.04) mg/dL Est GFR (CKD-EPI)AfAm >90 (>60 ml/min/1.73 sqM) Est GFR (CKD-EPI)NonAf >90 (>60 ml/min/1.73 sqM) Glucose 74 (74-99) mg/dL Calcium 9.9 (8.4-10.2) mg/dL Total Bilirubin 0.3 (0.2-1.3) mg/dL AST 20 (14-36) U/L ALT 11 (4-34) U/L Alkaline Phosphatase 68 (38-126) U/L Total Protein 8.0 (6.3-8.2) g/dL Albumin 4.4 (3.5-5.0) g/dL HCG, Qual Detected Urine Color Urine Appearance (Clear) Urine pH (5.0-8.0) Ur Specific [place] (1.001-1.035) Urine Protein (Negative) Urine Glucose (UA) (Negative) Urine Ketones (Negative) Urine Blood (Negative) Urine Nitrite (Negative) Urine Bilirubin (Negative) Urine Urobilinogen (<2.0) mg/dL Ur Leukocyte Esterase (Negative) Urine RBC (0-5) /hpf Urine WBC (0-5) /hpf Ur Squamous Epith Cells (0-4) /hpf Amorphous Sediment (None) /hpf Urine Bacteria (None) /hpf Urine Mucus (None) /hpf Influenza Type A (PCR) Not Detected (Not Detectd) Influenza Type B (PCR) Not Detected (Not Detectd) RSV (PCR) Not Detected (Not Detectd) SARS-CoV-2 (PCR) Not Detected (Not Detectd) 01/05/24 Range/Units 22:48 WBC (3.8-10.6) k/uL RBC (3.80-5.40) m/uL Hgb (11.4-16.0) gm/dL Hct (34.0-46.0) % MCV (80.0-100.0) fL MCH (25.0-35.0) pg MCHC (31.0-37.0) g/dL RDW (11.5-15.5) % Plt Count (150-450) k/uL MPV Neutrophils % % Lymphocytes % % Monocytes % % Eosinophils % % Basophils % % Neutrophils # (1.3-7.7) k/uL Lymphocytes # (1.0-4.8) k/uL Monocytes # (0-1.0) k/uL Eosinophils # (0-0.7) k/uL Basophils # (0-0.2) k/uL Sodium (137-145) mmol/L Potassium (3.5-5.1) mmol/L Chloride (98-107) mmol/L Carbon Dioxide (22-30) mmol/L Anion Gap mmol/L BUN (7-17) mg/dL Creatinine (0.52-1.04) mg/dL Est GFR (CKD-EPI)AfAm (>60 ml/min/1.73 sqM) Est GFR (CKD-EPI)NonAf (>60 ml/min/1.73 sqM) Glucose (74-99) mg/dL Calcium (8.4-10.2) mg/dL Total Bilirubin (0.2-1.3) mg/dL AST (14-36) U/L ALT (4-34) U/L Alkaline Phosphatase (38-126) U/L Total Protein (6.3-8.2) g/dL Albumin (3.5-5.0) g/dL HCG, Qual Urine Color Colorless Urine Appearance Cloudy H (Clear) Urine pH 6.5 (5.0-8.0) Ur Specific [place] 1.013 (1.001-1.035) Urine Protein Negative (Negative) Urine Glucose (UA) Negative (Negative) Urine Ketones Negative (Negative) Urine Blood Moderate H (Negative) Urine Nitrite Negative (Negative) Urine Bilirubin Negative (Negative) Urine Urobilinogen <2.0 (<2.0) mg/dL Ur Leukocyte Esterase Small H (Negative) Urine RBC 64 H (0-5) /hpf Urine WBC 4 (0-5) /hpf Ur Squamous Epith Cells 12 H (0-4) /hpf Amorphous Sediment Rare H (None) /hpf Urine Bacteria Rare H (None) /hpf Urine Mucus Rare H (None) /hpf Influenza Type A (PCR) (Not Detectd) Influenza Type B (PCR) (Not Detectd) RSV (PCR) (Not Detectd) SARS-CoV-2 (PCR) (Not Detectd) Disposition Clinical Impression: Asymptomatic bacteriuria, Bronchitis Disposition: HOME SELF-CARE Condition: Good Additional Instructions: Please return to the Emergency Department if symptoms worsen or any other concerns. Please follow-up with your [employer]. Prescriptions: Cephalexin [Keflex] 500 mg PO TID 10 Days #30 cap Is patient prescribed a controlled substance at d/c from ED?: No Referrals: None,Stated [Primary Care Provider] - 1-2 days Time of Disposition: 00:15
[2024-01-05] MEDS: SODIUM CHLORIDE 0.9% 1,000 ML IV STA (22:04)
[2024-01-05 22:17] LABS: Basophils # (A) 0.1 k/uL (0-0.2); Basophils % (A) 1 %; Eosinophils # (A) 0.2 k/uL (0-0.7); Eosinophils % (A) 1 %; HGB 12.7 gm/dL (11.4-16.0); Lymphocytes # (A) 4.3 k/uL (1.0-4.8); Lymphocytes % (A) 25 %; MCH 29.8 pg (25.0-35.0); MCHC 31.7 g/dL (31.0-37.0); MCV 94.1 fL (80.0-100.0); Mean Platelet Volume 7.2; Monocytes # (A) 1.2 k/uL (0-1.0); Monocytes % (A) 7 %; Neutrophils # (A) 10.9 k/uL (1.3-7.7); Neutrophils % (A) 64 %; Platelet Count 510 k/uL (150-450); RBC 4.25 m/uL (3.80-5.40); RDW 12.6 % (11.5-15.5)
[2024-01-05 22:44] LABS: ALT 11 U/L (4-34); AST 20 U/L (14-36); African American GFR (CKD) >90 (>60 ml/min/1.73 sqM); Albumin 4.4 g/dL (3.5-5.0); Alkaline Phosphatase 68 U/L (38-126); Anion Gap 9 mmol/L; Blood Urea Nitrogen 13 mg/dL (7-17); Calcium 9.9 mg/dL (8.4-10.2); Carbon Dioxide 25 mmol/L (22-30); Chloride 105 mmol/L (98-107); Glucose 74 mg/dL (74-99); Non-African American GFR(CKD) >90 (>60 ml/min/1.73 sqM); Potassium 3.9 mmol/L (3.5-5.1); Sodium 139 mmol/L (137-145); Total Bilirubin 0.3 mg/dL (0.2-1.3)
[2024-01-05 22:47] LABS: HCG,Qualitative Serum Detected
[2024-01-05 23:21] LABS: Amorphous Sediment,Urine Rare /hpf; Appearance,Urine Cloudy (Clear); Bacteria,Urine Rare /hpf; Bilirubin,Urine Negative (Negative); Blood,Urine Moderate (Negative); Color,Urine Colorless; Glucose,Urine (UA) Negative (Negative); Ketones,Urine Negative (Negative); Leukocyte Esterase,Urine Small (Negative); Mucus,Urine Rare /hpf; Nitrite,Urine Negative (Negative); PH, Urine 6.5 (5.0-8.0); Protein,Urine Negative (Negative); RBC,Urine 64 /hpf (0-5); Specific Gravity,Urine 1.013 (1.001-1.035); Squamous Epithelial Cell,Urine 12 /hpf (0-4); Urobilinogen,Urine <2.0 mg/dL (<2.0); WBC,Urine 4 /hpf (0-5)
--- NOTE | 2024-01-06 00:03 | US ---
EXAM: US , Transvaginal CLINICAL HISTORY: ITS.REASON US Reason: 8 wks . abdominal pain TECHNIQUE: Real-time transvaginal obstetrical ultrasound of the maternal pelvis and a first trimester with image documentation. Transvaginal imaging was used for better evaluation of the fetus and adnexa. COMPARISON: None. FINDINGS: Gestation: Perigestational hematoma which encompasses less than 180 of the gestational sac. Yolk sac measures 4 mm. CRL measures 0.53 cm corresponding to 6 weeks 2 days. heart rate measures 116 bpm. Placenta/amniotic fluid: Cannot be adequately evaluated due to the early gestational age. Uterus/cervix: Unremarkable. No myometrial mass. Ovaries: The ovaries are obscured by bowel gas and are not visualized. Free fluid: Small amount of fluid in the cul-de-sac. IMPRESSION: 1. Single living intrauterine corresponding to 6 weeks 2 days by ultrasound. Recommend correlation for clinical dates. 2. Small pato-gestational hematoma. 3. Ovaries are not visualized on this examination.
[2024-01-06 01:01] VITALS: BP 94/61; PULSE 75; RESP 20; TEMP 97.8
== END 2024-01-06 00:55 | disposition home or self-care (01) ==
LOC: EC 20:42
DX: O23.41 Unspecified infection of urinary tract in pregnancy, first trimester (principal); R82.71 Bacteriuria; O99.511 Diseases of the respiratory system complicating pregnancy, first trimester; J40 Bronchitis, not specified as acute or chronic; O99.331 Smoking (tobacco) complicating pregnancy, first trimester; F17.290 Nicotine dependence, other tobacco product, uncomplicated; Z3A.08 8 weeks gestation of pregnancy; Z88.0 Allergy status to penicillin
CPT/HCPCS: 36415; 76801; 76817; 80053; 81001; 84703; 85025; 87086; 87636; 96360; 96361; 99284